=== PATIENT | male | born 1985 ===

== ENCOUNTER → 2020-05-10 11:41 | Outpatient (BNVA) | payer MEDICARE, MEDICAID, SELFPAY | PROVIDERS: Family Provider Nurse Practitioner Family; PCP Nurse Practitioner Family; Visit Provider Nurse Practitioner Family | DX: Z13.1 Encounter for screening for diabetes mellitus (principal); R53.82 Chronic fatigue, unspecified; Z13.6 Encounter for screening for cardiovascular disorders; F41.8 Other specified anxiety disorders; G47.9 Sleep disorder, unspecified; G80.9 Cerebral palsy, unspecified; Z79.899 Other long term (current) drug therapy; E55.9 Vitamin D deficiency, unspecified | CPT/HCPCS: 80053; 80061; 81001; 82652; 83036; 84443; 85025 ==